=== PATIENT | female | born 1955 | race Caucasian/White ===

== ENCOUNTER → 2018-02-14 | Outpatient (CLI) | payer OTHER ==
--- NOTE | 2018-02-14 12:32 | KCIC ---
Renal ultrasound History: Stage III chronic renal disease. Technique: Sonographic imaging of both kidneys. Right kidney: * 9.5 cm length. * No evidence of calcified stone or hydronephrosis. * There appears to be mild renal cortical atrophy. Left kidney: * 10.6 cm length. * No evidence of calcified stone or hydronephrosis. * No significant renal lesion. Urinary bladder: Not evaluated, as patient had voided prior to the scan. Miscellaneous findings: Aorta is nonaneurysmal. Inferior vena cava is patent. Impression: Right kidney demonstrates evidence of cortical atrophy. Urinary bladder not evaluated due to recent voiding. Electronically signed by: Cain Seth MD (02/14/2018 12:29 PM) [id number]
== END | disposition home or self-care (01) ==
LOC: KCIC US 11:17
PROVIDERS: ATTEND Internal Medicine Nephrology
DX: N18.3 Chronic kidney disease, stage 3 (moderate) (principal)
CPT/HCPCS: 76770